=== PATIENT | male | born 1985 | race Caucasian/White ===

== ENCOUNTER → 2018-10-08 | Day surgery (SDC) | payer SELFPAY ==
[~2018-10-08] MED LIST: Bupivacaine 0.5% 50 ML MDV ONE; Clindamycin Phosphate 900 MG in Sodium Chloride 0.9% 100 ML IV ONE; Lidocaine 0.5% 50 ML SDV ONE; Lidocaine 1% 50 ML MDV ONE; Midazolam 1 MG/ML 2 ML SDV ONE; Povidone-Iodine 10% Soln 118.25 ML Bottle ONE; Propofol 200 MG/20 ML SDV ONE; fentaNYL 100 MCG/2 ML SDV ONE
--- NOTE | 2018-10-08 15:42 | CRLCR ---
Indication: Injury and pain Technique: Left 4th finger 3 views Comparison: None Findings/Impression: Bones: Alignment is normal. No fractures or bone lesions. Joint spaces: Unremarkable. Soft tissues: Soft tissue injury is present in the distal tip. No foreign body. Dictated by Yadiel Willoughby MD @ 10/08/2018 3:41:31 PM Dictated by: Yadiel Willoughby MD @ 10/08/2018 15:41:39 (Electronically Signed)
--- NOTE | 2018-10-08 16:04 | EDM.PDOC ---
ED HPI GENERAL MEDICAL PROBLEM - General Chief Complaint: Laceration Stated Complaint: CUT LEFT HAND Time Seen by Provider: 10/08/18 16:00 Source of Information: Reports: Patient, Family, RN Notes Reviewed History Limitations: Reports: No Limitations - History of Present Illness INITIAL COMMENTS - FREE TEXT/NARRATIVE: 33-year-old gentleman presents emergency department today following chainsaw injury, he had a kickback of the chainsaw which then caught his ring finger on his left hand he has difficulty fully extending the finger Left Finger-Ring Pain Score (Numeric/FACES): 8 - Related Data Allergies Allergy/AdvReac Type Severity Reaction Status Date / Time Penicillins Allergy Anaphylactic Verified 10/08/18 15:06 Shock Home Meds: Home Meds NK [No Known Home Meds] 02/15/15 [History] Past Medical History - Past Health History Medical/Surgical History: Denies Medical/Surgical History Social & Family History - Tobacco Use Smoking Status *Q: Never Smoker - Recreational Drug Use Recreational Drug Use: No ED ROS GENERAL - Review of Systems Review Of Systems: See Below Skin: Reports: Wound ED EXAM, SKIN/RASH Exam: See Below Text/Narrative:: Examination of left hand there is approximately a 5 cm laceration across digit # 4 consistent with a chainsaw type injury full range of motion of MCP PIP joint however he cannot fully extend the DIP joint of that digit radial pulse is +2 sensation is intact Exam Limited By: No Limitations General Appearance: Alert, WD/WN, No Apparent Distress Course - Vital Signs Last Recorded V/S: Last Vital Signs Temp 97.2 F 10/08/18 15:04 Pulse 95 10/08/18 15:04 Resp 18 10/08/18 15:04 BP 144/87 H 10/08/18 15:04 Pulse Ox 98 10/08/18 15:04 Departure - Departure Time of Disposition: 17:05 Disposition: Still A Patient 30 Condition: Fair Clinical Impression: Injury of extensor tendon of left hand Qualifiers: Encounter type: initial encounter Qualified Code(s): S66.902A - Unspecified injury of unspecified muscle, fascia and tendon at wrist and hand level, left hand, initial encounter Laceration of left ring finger Qualifiers: Encounter type: initial encounter Damage to nail status: without damage Foreign body presence: without foreign body Qualified Code(s): S61.215A - Laceration without foreign body of left ring finger without damage to nail, initial encounter - Discharge Information Referrals: PCP,None [Primary Care Provider] - Forms: ED Department Discharge - Assessment/Plan Plan: Assessment Acuity = acute Site and laterality = 5 cm laceration with extensor tendon injury digit #4 left hand Etiology = secondary to chainsaw trauma Manifestations = none Location of injury = Home Lab values = x-ray reveals no fracture Plan Discussed case with Dr. Welch at 1530 he kindly agreed to evaluate the patient in the emergency department for further plan This note was dictated using [employer]iyalife voice recognition software please call with any questions on syntax or grammar.
--- NOTE | 2018-10-08 17:24 | PCM.HP ---
H&P History of Present Illness - General Date of Service: 10/08/18 Admit Problem/Dx: Admission Diagnosis/Problem Admission Diagnosis/Problem Laceration Source of Information: Patient History Limitations: Reports: No Limitations - History of Present Illness Initial Comments - Free Text/Narative: Antony is a 33-year-old gentleman who presents to the emergency room with a laceration to his left fourth finger. Laceration occurred approximately 2:30 this afternoon due to chainsaw kicking back against his hand. Laceration is over the dorsum of the ring finger overlying the middle phalanx. He presented to the emergency room immediately after the injury but it was approximately half hour ride from the place of injury. This noted to have contaminated wound with the jagged laceration and an extensor lag of the distal phalanx. Sensation is intact in the tip. No other injuries were sustained. Onset of Symptoms: Reports: Today Symptom Onset Time: 14:30 Location: Reports: Upper Extremity, Left Improves with: Reports: Immobilization Worsens with: Reports: Movement Associated Symptoms: Reports: No Other Symptoms Left Finger-Ring Pain Score (Numeric/FACES): 8 - Related Data Allergies/Adverse Reactions: Allergies Allergy/AdvReac Type Severity Reaction Status Date / Time Penicillins Allergy Anaphylactic Verified 10/08/18 15:06 Shock Home Medications: Home Meds NK [No Known Home Meds] 02/15/15 [History] Past Medical History - Past Health History Medical/Surgical History: Denies Medical/Surgical History Social & Family History - Tobacco Use Smoking Status *Q: Never Smoker - Recreational Drug Use Recreational Drug Use: No H&P Review of Systems - Review of Systems: Review Of Systems: ROS reveals no pertinent complaints other than HPI. Exam - Exam Exam: See Below - Vital Signs Vital Signs: Last Vital Signs Temp 36.2 C 10/08/18 15:04 Pulse 95 10/08/18 15:04 Resp 18 10/08/18 15:04 BP 144/87 H 10/08/18 15:04 Pulse Ox 98 10/08/18 15:04 Weight: 101.6 kg - Exam General: Alert, Oriented, 4 HEENT: PERRLA, Hearing Intact, Mucosa Moist & [place], Nares Patent, Normal Nasal Septum, Posterior Pharynx Clear, Conjunctiva Clear, EOMI, EACs Clear, TMs Clear Neck: Supple, Trachea Midline, 2 Lungs: Clear to Auscultation, Normal Respiratory Effort Cardiovascular: Regular Rate, Regular Rhythm GI/Abdominal Exam: Normal Bowel Sounds, Soft, Non-Tender, No Organomegaly, No Distention, No Abnormal Bruit, No Mass, Pelvis Stable (Male) Exam: Deferred Rectal (Males) Exam: Deferred Back Exam: Normal Inspection, Full Range of Motion, NT Peripheral Pulses: 2+: Radial (L), Radial (R) Skin: Warm, Dry, Intact Neurological: Cranial Nerves Intact, Reflexes Equal Bilateral Neuro Extensive - Mental Status: Alert, Oriented x3, Normal Mood/Affect, Normal Cognition Neuro Extensive - Motor, Sensory, Reflexes: CN II-XII Intact, Normal Gait, Normal Reflexes Physical Exam Comments:: There is a jagged laceration over the dorsum of his left fourth finger running from the PIP joint to the edge of the nail. Does not appear to have a nailbed injury. Subcutaneous tissue was exposed. He is unable to completely extend the DIP joint. Capillary refill is brisk fingers pink and warm sensation is intact in the distal tip. There is no exposed bone on initial exam. Hand is dirty and the wound edges are mildly contaminated. - Problem List (1) Injury of extensor tendon of left hand SNOMED Code(s): 733683131 ICD Code: S66.902A - UNSP INJ UNSP MUSC/FASC/TEND AT WRS/HND LV, LEFT HAND, INIT Status: Acute Current Visit: Yes Qualifiers: Encounter type: initial encounter Qualified Code(s): S66.902A - Unspecified injury of unspecified muscle, fascia and tendon at wrist and hand level, left hand, initial encounter (2) Laceration of left ring finger SNOMED Code(s): 863675107 ICD Code: S61.215A - LACERATION W/O FB OF L RNG FNGR W/O DAMAGE TO NAIL, INIT Status: Acute Current Visit: Yes Qualifiers: Encounter type: initial encounter Damage to nail status: without damage Foreign body presence: without foreign body Qualified Code(s): S61.215A - Laceration without foreign body of left ring finger without damage to nail, initial encounter Problem List Initiated/Reviewed/Updated: Yes Orders Last 24hrs: Active Orders 24 hr Category Date Time Status Patient Status Manage Transfer [TRANSFER] Routine ADT 04/02/19 17:07 Active Verify Patient Consent Obtain [RC] ASDIRECTED Care 10/08/18 17:08 Ordered NPO Now [Nothing per Oral Now Diet] [DIET] Diet 10/09/18 Breakfast Ordered Clindamycin Phosphate [Cleocin] 900 mg Med 10/08/18 17:17 Ordered Sodium Chloride 0.9% [Normal Saline] 100 ml IV ONETIME Assessment/Plan Comment:: X-rays of the finger are reviewed. There is no obvious bony defect. Impression: Jagged laceration to dorsum of left fourth finger due to chainsaw. Mildly contaminated wound. Extensor lag with at least partial extensor tendon laceration. Plan: Irrigation and debridement of laceration with exploration of extensor tendon and possible repair. Closure of complex laceration dorsum of the finger. Plan IV antibiotics and home on by mouth antibiotics. Risks, benefits and potential complications of the injury and surgery were discussed including, but not limited to, deep-seated infection, infection in the bone, extensor tendon injury, persistent stiffness and loss of range of motion due to extensor tendon injury. He is aware of these possibilities and agrees to proceed.
[2018-10-08 20:20] VITALS: BP 133/41
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
== END ==
LOC: JP.ED 14:40 → JP.SDS 17:20
PROVIDERS: ATTEND Specialist
DX: S66.325A Laceration of extensor muscle, fascia and tendon of left ring finger at wrist and hand level, initial encounter (principal); S56.424A Laceration of extensor muscle, fascia and tendon of left middle finger at forearm level, initial encounter; E66.9 Obesity, unspecified; Z68.36 Body mass index [BMI] 36.0-36.9, adult; K21.9 Gastro-esophageal reflux disease without esophagitis; W31.2XXA Contact with powered woodworking and forming machines, initial encounter; Z88.0 Allergy status to penicillin
CPT/HCPCS: 12002; 26418; 73140-F3; 99284-25; J2001; J2250; J2704; J3010; J3490; J7030

== ENCOUNTER 2021-03-13 16:05 | Emergency (ER) | payer OTHER, SELFPAY ==
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
[2021-03-13 17:39] VITALS: BP 147/94; PULSE 98
== END 2021-03-13 17:41 | disposition home or self-care (01) ==
LOC: JP.ED 16:05
DX: T59.811A Toxic effect of smoke, accidental (unintentional), initial encounter (principal); T65.891A Toxic effect of other specified substances, accidental (unintentional), initial encounter; Z88.0 Allergy status to penicillin
CPT/HCPCS: 36415; 80048; 82375; 85025; 99284

== ENCOUNTER 2022-02-01 23:29 | Emergency (ER) | payer BC, OTHER ==
[2022-02-02 00:53] VITALS: BP 147/81; PULSE 104
[2022-02-02] MEDS ORDERED: Sodium Chloride 0.9% 10 ML Syringe FLUSH PRN (01:01)
[2022-02-02 01:05] LABS: ESTIMATED GFR 101 mL/min (>60); TROPONIN I HIGH SENSITIVITY 6.9 pg/mL (<=60.3)
[2022-02-02] MEDS ORDERED: Sodium Chloride 0.9% 1,000 ML IV SCH (01:15)
[2022-02-02] MEDS ORDERED: Iopamidol 755 Mg/ML 100 ML Bottle IV STA (01:37)
[2022-02-02] MEDS ORDERED: Sodium Chloride 0.9% 50 ML IV STA (01:37)
[2022-02-02] MEDS ORDERED: Dexamethasone 4 MG/ML SDV PO ONE (02:26)
[2022-02-06 15:13] LABS: IGG P18 AB. Absent (.); IGG P23 AB. Absent (.); IGG P28 AB. Absent (.); IGG P30 AB. Absent (.); IGG P39 AB. Absent (.); IGG P41 AB. Absent (.); IGG P45 AB. Absent (.); IGG P58 AB. Absent (.); IGG P66 AB. Absent (.); IGG P93 AB. Absent (.); IGM P23 AB. Absent (.); IGM P39 AB. Absent (.); IGM P41 AB. Absent (.); LYME IGG LB INTERP. Negative (.); LYME IGM LB INTERP. Negative (.)
[2022-02-07 13:10] LABS: HGE IGG TITER Negative (Neg:<1:64); HGE IGM TITER Negative (Neg:<1:20)
[2022-02-07 16:10] LABS: BABESIA MICROTI IGG <1:10 (Neg:<1:10); BABESIA MICROTI IGM <1:10 (Neg:<1:10)
== END 2022-02-02 02:45 | disposition home or self-care (01) ==
LOC: JP.ED 23:29
DX: U07.1 COVID-19 (principal); R50.9 Fever, unspecified; R74.01 Elevation of levels of liver transaminase levels; R91.1 Solitary pulmonary nodule; Z88.0 Allergy status to penicillin; Z79.899 Other long term (current) drug therapy
CPT/HCPCS: 36415; 71275; 80053; 81001; 82728; 83605; 83615; 84145; 84484; 85025; 85379; 86140; 86617; 86618; 86666; 86753; 87635; 93005; 96360; 99285; J3490; J7030; J8540; Q9967; 93010; 99284; U0002

== ENCOUNTER 2024-07-29 06:17 | Day surgery (SDC) | payer BC ==
[2024-07-29] MEDS ORDERED: Midazolam 1 MG/ML 2 ML SDV ONE (06:55)
[2024-07-29] MEDS ORDERED: fentaNYL 50 MCG/ML SDV ONE (06:55)
[2024-07-29] MEDS ORDERED: Propofol 200 MG/20 ML SDV ONE ×2 (06:55→07:37)
[2024-07-29] MEDS: Lactated Ringers 1,000 ML IV SCH (07:10)
[2024-07-29 08:58] VITALS: BP 121/70; PULSE 69
== END 2024-07-29 09:19 | disposition home or self-care (01) ==
LOC: JP.SDS 06:17
PROVIDERS: ATTEND Surgery
DX: K21.9 Gastro-esophageal reflux disease without esophagitis (principal); R10.13 Epigastric pain; Z88.0 Allergy status to penicillin; Z79.899 Other long term (current) drug therapy; Z87.891 Personal history of nicotine dependence
CPT/HCPCS: 00731-QZ; J2250; J2704; J3010; J7120

== ENCOUNTER 2024-11-12 18:11 | Emergency (ER) | payer BC, OTHER ==
[2024-11-12 18:25] VITALS: BP 143/81; PULSE 90
[2024-11-12] MEDS: Cephalexin 250 MG Cap PO ONE (19:20)
== END 2024-11-12 19:56 | disposition home or self-care (01) ==
LOC: JP.ED 18:11
DX: J02.0 Streptococcal pharyngitis (principal); E66.9 Obesity, unspecified; K21.9 Gastro-esophageal reflux disease without esophagitis; Z88.0 Allergy status to penicillin; Z79.899 Other long term (current) drug therapy; Z79.1 Long term (current) use of non-steroidal anti-inflammatories (NSAID); Z86.16 Personal history of COVID-19; Z87.891 Personal history of nicotine dependence; Z68.36 Body mass index [BMI] 36.0-36.9, adult
CPT/HCPCS: 87651; 99283; A9270